=== PATIENT | female | born 1945 | race African-American/Black ===

== ENCOUNTER 2017-11-27 07:15 | Inpatient (IN) ==
[2017-11-27] MEDS ORDERED: DEXTROSE 50% 25 GM/50 ML VIAL IV PRN (13:42)
[2017-11-27] MEDS ORDERED: GLUCAGON 1 MG VIAL IM PRN (13:42)
[2017-11-27] MEDS ORDERED: MORPHINE 4 MG/1 ML VIAL IV PRN (13:46)
[2017-11-27] MEDS ORDERED: ZOLPIDEM 5 MG TABLET PO PRN (13:47)
[2017-11-27] MEDS ORDERED: NITROGLYCERIN DRIP 50 MG/250 ML BOTTLE IV PRN (13:49)
[2017-11-27] MEDS: SODIUM CHLORIDE 0.9% 1,000 ML IV SCH (14:23)
[2017-11-27] MEDS: CARVEDILOL 25 MG TABLET PO SCH (16:45)
[2017-11-27] MEDS: oxyCODONE/ACETAMINOPHEN 5-325 MG TABLET PO PRN ×2 (16:45→21:10)
[2017-11-27] MEDS: ENOXAPARIN 40 MG/0.4 ML SYRINGE SUBCUT SCH (21:10)
[2017-11-27] MEDS: NAPROXEN 250 MG TABLET PO SCH (21:10)
[2017-11-27] MEDS: ATORVASTATIN 80 MG TABLET PO SCH (21:10)
[2017-11-28] MEDS ORDERED: ONDANSETRON 4 MG/2 ML VIAL ONE (02:51)
[2017-11-28] MEDS: ONDANSETRON 4 MG/2 ML VIAL IV PRN ×2 (02:56→18:00)
[2017-11-28 03:52] LABS: Basophils % 0.3 % (0.0-0.8); Eosinophils # 0.2 10*3/uL (0.0-0.87); Eosinophils % 2.9 % (0.00-10.9); Hematocrit 37.9 VOL% (35.7-47.0); Hemoglobin 12.1 GM/DL (12.0-16.0); Immature Granulocytes % 0.2 %; Immature Granulocytes Absolute 0.01 #; Lymphocytes # 2.8 10*3/uL (1.4-4.0); Lymphocytes % 46.3 % (21.3-54.2); Mean Corpuscular HGB Conc 31.9 GM/DL (32-36); Mean Corpuscular Hemoglobin 28 PG (27-34); Mean Corpuscular Volume 87.9 FL (87-102); Mean Platelet Volume 12.1 FL (9.6-12.0); Monocytes # 0.5 10*3/uL (0.11-0.8); Monocytes % 7.3 % (1.7-12.7); Neutrophils # 2.6 10*3/uL (1.4-7.4); Platelet Count 196 T/CUMM (130-400); Red Blood Count 4.31 MC/CUMM (3.8-5.5); Red Cell Distribution Width 14.7 % (9.3-17.3); White Blood Count 6.1 T/CUMM (4-12)
[2017-11-28 04:15] LABS: Albumin 3.2 G/DL (3.4-5.0); Bilirubin,Total 1.6 MG/DL (0.2-1.0); Calcium 9.1 MG/DL (8.5-10.1); Osmolality,Calculated 279.5 MOS/KG (273-304); Total Protein 6.8 G/DL (6.4-8.3)
[2017-11-28 05:05] LABS: ABG Base Excess 1.6 MMOL/L (-2.5-2.5); ABG HCO3 25.9 MMOL/L (20-26); ABG Oxygen Saturation 97.9 % (95-100); ABG PCO2 46.6 MM HG (35-48); ABG PH 7.377 (7.35-7.45); ABG TCO2 24.2 MMOL/L (23-27); Allen Test Positive
[2017-11-28] MEDS: LOSARTAN 50 MG TABLET PO SCH (09:16)
[2017-11-28] MEDS: CARVEDILOL 25 MG TABLET PO SCH ×2 (09:17→16:39)
[2017-11-28] MEDS: ASPIRIN EC 81 MG TABLET PO SCH (09:17)
[2017-11-28] MEDS: NAPROXEN 250 MG TABLET PO SCH ×2 (09:17→21:05)
[2017-11-28] MEDS: SODIUM CHLORIDE 0.9% 1,000 ML IV SCH (15:28)
[2017-11-28] MEDS ORDERED: LACTULOSE 20 GM/30 ML UDCUP PO PRN (17:38)
[2017-11-28] MEDS: ENOXAPARIN 40 MG/0.4 ML SYRINGE SUBCUT SCH (21:04)
[2017-11-28] MEDS: ATORVASTATIN 80 MG TABLET PO SCH (21:05)
[2017-11-28] MEDS: oxyCODONE/ACETAMINOPHEN 5-325 MG TABLET PO PRN (21:05)
[2017-11-29] MEDS: ASPIRIN EC 81 MG TABLET PO SCH (08:41)
[2017-11-29] MEDS: LOSARTAN 50 MG TABLET PO SCH (08:41)
[2017-11-29] MEDS: CARVEDILOL 25 MG TABLET PO SCH ×2 (08:41→17:24)
[2017-11-29] MEDS: NAPROXEN 250 MG TABLET PO SCH ×2 (08:43→21:12)
[2017-11-29] MEDS: CHLORHEXIDINE 4% SOLN 118 ML BOTTLE TOP SCH ×2 (15:54→21:13)
[2017-11-29] MEDS: SODIUM CHLORIDE 0.9% 1,000 ML IV SCH (16:10)
[2017-11-29] MEDS ORDERED: CLORAZEPATE 3.75 MG TABLET PO PRN (17:44)
[2017-11-29] MEDS ORDERED: MORPHINE 4 MG/1 ML VIAL IV PRN (19:03)
[2017-11-29] MEDS: ATORVASTATIN 80 MG TABLET PO SCH (21:12)
[2017-11-29] MEDS: CHLORHEXIDINE 0.12% ORAL RINSE 60 ML BOTTLE SWISH/SPIT SCH (21:14)
[2017-11-30] MEDS ORDERED: PAPAVERINE 60 MG/2 ML VIAL ONE (04:47)
[2017-11-30] MEDS ORDERED: VANCOMYCIN 1,000 MG VIAL ONE ×2 (04:47→08:58)
[2017-11-30] MEDS ORDERED: SUFentanil 250 MCG/5 ML AMP ONE (05:35)
[2017-11-30] MEDS ORDERED: MIDAZOLAM 10 MG/2 ML VIAL ONE (05:35)
[2017-11-30] MEDS ORDERED: DIAZEPAM 5 MG TABLET PO ONE (06:00)
[2017-11-30] MEDS ORDERED: CEFUROXIME INJ 1,500 MG in SYRINGE 1 EACH IV ONE (06:30)
[2017-11-30 08:00] LABS: ABG Base Excess 1.7 MMOL/L (-2.5-2.5); ABG HCO3 25.9 MMOL/L (20-26); ABG Oxygen Saturation 99.3 % (95-100); ABG PCO2 40.6 MM HG (35-48); ABG PH 7.419 (7.35-7.45); ABG TCO2 23.4 MMOL/L (23-27); Glucose Heart Surgery 100 MG/DL (74-106); Hematocrit Heart Surgery 34.7 PERCENT (37-47); Hemoglobin Heart Surgery 11.3 G/DL (12.0-16.0); Ionized Calcium Arterial 1.21 MMOL/L (1.21-1.46); PCO2 Patient Temp Arterial 40.6 MMHG; PH Patient Temp Arterial 7.419; Patient Temperature 37 CELCIUS; Potassium Heart/CVR 3.8 MMOL/L (3.5-5.1); Sodium Heart/CVR 140 MMOL/L (135-145)
[2017-11-30 08:05] LABS: Apearance,Urine CLEAR (Clear); Bilirubin,Urine Negative (Negative); Blood, Urine Negative (Negative); Glucose,Urine (UA) Negative (Negative); Ketones,Urine Negative (Negative); Nitrite,Urine Negative (Negative); Protein,Urine Negative; RBC,Urine 1 /HPF (0-4); Squamous Epithelial Cell,Urine Occasional /HPF (0-10); Urine Color Yellow (Yellow); Urine Specific Gravity 1.006 (1.001-1.035); Urine Urobilinogen < 2.0 EU/DL (0.2-1.0); WBC,Urine <1 /HPF (0-6)
[2017-11-30] MEDS ORDERED: PHENYLEPHRINE DRIP 40 MG/250 ML PREMIX IV ONE (08:42)
[2017-11-30] MEDS ORDERED: POTASSIUM CHLORIDE RIDER 100 ML IV ONE (08:42)
[2017-11-30] MEDS ORDERED: NITROPRUSSIDE 50 MG/2 ML VIAL ONE (08:42)
[2017-11-30] MEDS ORDERED: CALCIUM CHLORIDE 1,000 MG/10 ML SYRINGE IV ONE (08:42)
[2017-11-30] MEDS ORDERED: SODIUM BICARBONATE 50 MEQ/50 ML SYRINGE IV ONE ×2 (08:43→10:33)
[2017-11-30] MEDS ORDERED: ALBUMIN 5% 12.5 GM/250 ML VIAL IV ONE (08:43)
[2017-11-30] MEDS: NAPROXEN 250 MG TABLET PO SCH (09:14)
[2017-11-30] MEDS: ASPIRIN EC 81 MG TABLET PO SCH (09:14)
[2017-11-30] MEDS: CHLORHEXIDINE 4% SOLN 118 ML BOTTLE TOP SCH (09:14)
[2017-11-30] MEDS: CARVEDILOL 25 MG TABLET PO SCH (09:14)
[2017-11-30] MEDS: LOSARTAN 50 MG TABLET PO SCH (09:14)
[2017-11-30] MEDS: CHLORHEXIDINE 0.12% ORAL RINSE 60 ML BOTTLE SWISH/SPIT SCH ×2 (09:15→21:58)
[2017-11-30 09:17] LABS: Hematocrit Heart Surgery 21.2 PERCENT (37-47); Hemoglobin Heart Surgery 6.8 G/DL (12.0-16.0); PCO2 Patient Temp Venous 26.8 MM HG; PH Patient Temp Venous 7.572; PO2 Patient Temp Venous 39.5 MM HG; Potassium Heart/CVR 5.8 MMOL/L (3.5-5.1); VBG Base Excess 2.9 MEQ/L (0-4); VBG HCO3 26.9 MEQ/L (24-28); VBG PH 7.526; VBG PO2 48.4 MMHG (17-40)
[2017-11-30 09:50] LABS: Hematocrit Heart Surgery 23.3 PERCENT (37-47); Hemoglobin Heart Surgery 7.5 G/DL (12.0-16.0); PCO2 Patient Temp Venous 28.6 MM HG; PH Patient Temp Venous 7.564; PO2 Patient Temp Venous 46.3 MM HG; Potassium Heart/CVR 5.2 MMOL/L (3.5-5.1); VBG Base Excess 3.9 MEQ/L (0-4); VBG HCO3 27.8 MEQ/L (24-28); VBG Oxygen Saturation 91.6 %; VBG PCO2 31.5 MMHG (41-51); VBG PH 7.533
[2017-11-30] MEDS ORDERED: EPINEPHrine 1 MG/10 ML SYRINGE ONE (10:16)
[2017-11-30] MEDS ORDERED: ALBUMIN 25% 25 GM/100 ML VIAL IV ONE (10:33)
[2017-11-30] MEDS ORDERED: PROTAMINE SULFATE 250 MG/25 ML VIAL IV ONE (10:33)
[2017-11-30] MEDS ORDERED: DEXTROSE 5% KCL 20 MEQ 20 MEQ/1,000 ML BAG IV ONE (10:33)
[2017-11-30] MEDS ORDERED: methylPREDNISolone SOD SUC 1,000 MG/8 ML VIAL ONE (10:34)
[2017-11-30] MEDS ORDERED: MANNITOL 12.5 GM/50 ML VIAL IV ONE (10:34)
[2017-11-30] MEDS ORDERED: HEPARIN 10,000 UNIT/10 ML VIAL ONE (10:34)
[2017-11-30] MEDS ORDERED: FUROSEMIDE 20 MG/2 ML VIAL ONE (10:34)
[2017-11-30] MEDS ORDERED: MAGNESIUM SULFATE 10 GM/20 ML VIAL IV ONE (10:34)
[2017-11-30 10:36] LABS: ABG Base Excess 1.4 MMOL/L (-2.5-2.5); ABG HCO3 25.7 MMOL/L (20-26); ABG Oxygen Saturation 99.3 % (95-100); ABG PH 7.452 (7.35-7.45); ABG TCO2 22.8 MMOL/L (23-27); Glucose Heart Surgery 252 MG/DL (74-106); Hematocrit Heart Surgery 30.8 PERCENT (37-47); Hemoglobin Heart Surgery 9.9 G/DL (12.0-16.0); Ionized Calcium Arterial 1.34 MMOL/L (1.21-1.46); PH Patient Temp Arterial 7.452; Patient Temperature 37 CELCIUS; Potassium Heart/CVR 4.4 MMOL/L (3.5-5.1); Sodium Heart/CVR 134 MMOL/L (135-145)
[2017-11-30] MEDS: SODIUM CHLORIDE 0.45% 1,000 ML IV SCH ×2 (11:15)
[2017-11-30] MEDS ORDERED: DEXTROSE 50% 25 GM/50 ML VIAL IV PRN ×2 (11:28)
[2017-11-30] MEDS ORDERED: ACETAMINOPHEN 650 MG SUPP RECTAL PRN (11:28)
[2017-11-30] MEDS ORDERED: MAGNESIUM SULF RIDER 2 GM in PREMIX 1 EACH IV PRN (11:28)
[2017-11-30] MEDS ORDERED: ONDANSETRON 4 MG/2 ML VIAL IV PRN (11:28)
[2017-11-30] MEDS ORDERED: MAGNESIUM SULF RIDER 4 GM in PREMIX 1 EACH IV PRN (11:28)
[2017-11-30] MEDS ORDERED: VECURONIUM 10 MG VIAL IV PRN ×2 (11:28)
[2017-11-30] MEDS ORDERED: LACTATED RINGERS 250 ML IV PRN (11:28)
[2017-11-30] MEDS ORDERED: CALCIUM CHLORIDE 1,000 MG/10 ML SYRINGE IV PRN (11:28)
[2017-11-30] MEDS ORDERED: MORPHINE 10 MG/1 ML VIAL IV PRN (11:28)
[2017-11-30] MEDS ORDERED: PHENYLEPHRINE DRIP 40 MG/250 ML PREMIX IV PRN (11:28)
[2017-11-30] MEDS ORDERED: MIDAZOLAM 10 MG/2 ML VIAL IV PRN (11:28)
[2017-11-30] MEDS ORDERED: INSULIN REGULAR 100 UNIT/ML IV PRN (11:28)
[2017-11-30] MEDS ORDERED: NITROPRUSSIDE 100 MG in DEXTROSE 5% 250 ML IV PRN (11:28)
[2017-11-30] MEDS ORDERED: INSULIN REGULAR 100 UNIT/ML IV ONE (11:28)
[2017-11-30] MEDS ORDERED: INSULIN REGULAR DRIP 100 ML IV SCH (11:30)
[2017-11-30] MEDS ORDERED: PROTAMINE SULFATE 50 MG/5 ML VIAL IV ONE (11:35)
[2017-11-30 11:39] LABS: ABG Base Excess 2.5 MMOL/L (-2.5-2.5); ABG Oxygen Saturation 93.6 % (95-100); ABG PCO2 31.8 MM HG (35-48); ABG PH 7.514 (7.35-7.45); ABG PO2 67.8 MM HG (80-95); Basophils % 0.6 % (0.0-0.8); Eosinophils # 0.1 10*3/uL (0.0-0.87); Eosinophils % 1.2 % (0.00-10.9); Glucose Heart Surgery 205 MG/DL (74-106); Hematocrit 33.6 VOL% (35.7-47.0); Hemoglobin 11.2 GM/DL (12.0-16.0); Hemoglobin Heart Surgery 11.9 G/DL (12.0-16.0); Immature Granulocytes % 0.6 %; Immature Granulocytes Absolute 0.04 #; Lymphocytes # 1.2 10*3/uL (1.4-4.0); Lymphocytes % 17.6 % (21.3-54.2); Mean Corpuscular HGB Conc 33.3 GM/DL (32-36); Mean Corpuscular Hemoglobin 29 PG (27-34); Mean Corpuscular Volume 88.2 FL (87-102); Mean Platelet Volume 10.7 FL (9.6-12.0); Monocytes # 0.2 10*3/uL (0.11-0.8); Monocytes % 2.8 % (1.7-12.7); Neutrophils # 5.2 10*3/uL (1.4-7.4); Neutrophils % 77.2 % (38.7-73.9); Platelet Count 168 T/CUMM (130-400); Red Blood Count 3.81 MC/CUMM (3.8-5.5); Red Cell Distribution Width 14.6 % (9.3-17.3); White Blood Count 6.8 T/CUMM (4-12)
[2017-11-30] MEDS ORDERED: PROPOFOL 200 MG/20 ML VIAL IV ONE (11:40)
[2017-11-30] MEDS ORDERED: SEVOFLURANE 1 UNIT/15 MINUTE INH ONE (11:41)
[2017-11-30] MEDS ORDERED: HEPARIN/NACL 0.9% 2 UNITS/ML 500 ML IV ONE (11:41)
[2017-11-30] MEDS ORDERED: ePHEDrine 50 MG/ML AMP ONE (11:41)
[2017-11-30] MEDS ORDERED: PHENYLEPHRINE DRIP 20 MG/250 ML PREMIX IV ONE (11:41)
[2017-11-30] MEDS ORDERED: CALCIUM CHLORIDE 1,000 MG/10 ML VIAL IV ONE (11:41)
[2017-11-30] MEDS ORDERED: SODIUM CHLORIDE 0.9% 2,000 ML IV ONE (11:42)
[2017-11-30] MEDS ORDERED: GLYCOPYRROLATE 0.4 MG/2 ML VIAL ONE (11:42)
[2017-11-30] MEDS ORDERED: NITROGLYCERIN DRIP 50 MG/250 ML BOTTLE IV ONE (11:42)
[2017-11-30] MEDS ORDERED: LACTATED RINGERS 2,000 ML IV ONE (11:42)
[2017-11-30] MEDS ORDERED: PHENYLEPHRINE 1 MG/10 ML SYRINGE IV ONE (11:42)
[2017-11-30] MEDS ORDERED: AMINOCAPROIC ACID 5,000 MG/20 ML VIAL IV ONE (11:42)
[2017-11-30] MEDS ORDERED: SODIUM CHLORIDE 0.9% 200 ML IV ONE (11:42)
[2017-11-30] MEDS ORDERED: ETOMIDATE 40 MG/20 ML VIAL IV ONE (11:42)
[2017-11-30] MEDS ORDERED: SODIUM CHLORIDE 0.9% 250 ML IV ONE (11:42)
[2017-11-30] MEDS: KETOROLAC 30 MG/1 ML VIAL IV SCH ×2 (11:46→17:00)
[2017-11-30 11:50] LABS: INR 1.1; PT Patient Result 11.8 SECS; Partial Thromboplastin Time 33.5 SECS (0-40)
[2017-11-30] MEDS: POTASSIUM CHLORIDE RIDER 20 MEQ in PREMIX 1 EACH IV PRN ×2 (12:05→18:29)
[2017-11-30 12:09] LABS: Osmolality,Calculated 284.4 MOS/KG (273-304); Potassium 4.2 MMOL/L (3.5-5.1); Total Protein 5.6 G/DL (6.4-8.3)
[2017-11-30] MEDS: LACTATED RINGERS 1,000 ML IV PRN ×3 (12:15→16:45)
[2017-11-30 12:16] LABS: ABG Base Excess 1.1 MMOL/L (-2.5-2.5); ABG HCO3 23.7 MMOL/L (20-26); ABG PCO2 31.2 MM HG (35-48); ABG PH 7.499 (7.35-7.45); ABG PO2 98.1 MM HG (80-95); ABG TCO2 24.7 MMOL/L (23-27); Glucose Heart Surgery 183 MG/DL (74-106); Hemoglobin Heart Surgery 11.5 G/DL (12.0-16.0); Potassium Heart/CVR 3.6 MMOL/L (3.5-5.1)
[2017-11-30] MEDS: ALBUMIN 5% 12.5 GM in PREMIX 1 EACH IV PRN ×3 (12:23→17:53)
[2017-11-30 12:29] LABS: CKMB % 7.6 %
[2017-11-30 12:30] LABS: Troponin I 5.65 NG/ML (0.00-0.045)
[2017-11-30] MEDS: POTASSIUM CHLORIDE RIDER 10 MEQ in PREMIX 1 EACH IV PRN ×3 (12:45→16:20)
[2017-11-30 14:00] LABS: ABG Base Excess 1.6 MMOL/L (-2.5-2.5); ABG HCO3 24.3 MMOL/L (20-26); ABG Oxygen Saturation 97.1 % (95-100); ABG PCO2 31.6 MM HG (35-48); ABG PH 7.503 (7.35-7.45); ABG PO2 98.5 MM HG (80-95); ABG TCO2 25.2 MMOL/L (23-27); Glucose Heart Surgery 140 MG/DL (74-106); Hemoglobin Heart Surgery 11.2 G/DL (12.0-16.0); Potassium Heart/CVR 4.5 MMOL/L (3.5-5.1)
[2017-11-30 16:09] LABS: ABG Base Excess 2.2 MMOL/L (-2.5-2.5); ABG HCO3 24.8 MMOL/L (20-26); ABG Oxygen Saturation 96.1 % (95-100); ABG PCO2 31.4 MM HG (35-48); ABG PH 7.515 (7.35-7.45); ABG PO2 86.9 MM HG (80-95); ABG TCO2 25.7 MMOL/L (23-27); Glucose Heart Surgery 125 MG/DL (74-106); Hemoglobin Heart Surgery 10.6 G/DL (12.0-16.0); Potassium Heart/CVR 4.5 MMOL/L (3.5-5.1)
[2017-11-30] MEDS: MIDAZOLAM 2 MG/2 ML VIAL IV PRN ×3 (17:12→21:46)
[2017-11-30 18:23] LABS: ABG Base Excess 1.5 MMOL/L (-2.5-2.5); ABG HCO3 25.7 MMOL/L (20-26); ABG Oxygen Saturation 97.2 % (95-100); ABG PCO2 31.8 MM HG (35-48); ABG PH 7.491 (7.35-7.45); ABG PO2 86.5 MM HG (80-95); ABG TCO2 22.1 MMOL/L (23-27); Glucose Heart Surgery 134 MG/DL (74-106); Hematocrit Heart Surgery 30.4 PERCENT (37-47); Hemoglobin Heart Surgery 9.8 G/DL (12.0-16.0); Potassium Heart/CVR 4.4 MMOL/L (3.5-5.1)
[2017-11-30] MEDS: CEFUROXIME INJ 1,500 MG in SYRINGE 1 EACH IV SCH (20:20)
[2017-11-30 20:53] LABS: Troponin I 4.75 NG/ML (0.00-0.045)
[2017-11-30] MEDS: PROPOFOL 1,000 MG/100 ML BOTTLE IV SCH (21:58)
[2017-12-01] MEDS: KETOROLAC 30 MG/1 ML VIAL IV SCH ×4 (00:07→17:04)
[2017-12-01] MEDS ORDERED: FUROSEMIDE 40 MG/4 ML VIAL IV ONE ×2 (01:00→11:24)
[2017-12-01 03:37] LABS: ABG HCO3 26.1 MMOL/L (20-26); ABG Oxygen Saturation 95.1 % (95-100); ABG PCO2 31.9 MM HG (35-48); ABG PH 7.498 (7.35-7.45); ABG PO2 69.9 MM HG (80-95); ABG TCO2 22.3 MMOL/L (23-27); Glucose Heart Surgery 122 MG/DL (74-106); Hematocrit Heart Surgery 31.6 PERCENT (37-47); Hemoglobin Heart Surgery 10.2 G/DL (12.0-16.0); Potassium Heart/CVR 4.2 MMOL/L (3.5-5.1)
[2017-12-01 03:55] LABS: Basophils % 0.1 % (0.0-0.8); Hematocrit 29.7 VOL% (35.7-47.0); Hemoglobin 9.8 GM/DL (12.0-16.0); Immature Granulocytes % 0.6 %; Immature Granulocytes Absolute 0.09 #; Lymphocytes # 1.2 10*3/uL (1.4-4.0); Lymphocytes % 8.3 % (21.3-54.2); Mean Corpuscular Hemoglobin 29 PG (27-34); Mean Corpuscular Volume 88.1 FL (87-102); Mean Platelet Volume 11.7 FL (9.6-12.0); Monocytes # 0.5 10*3/uL (0.11-0.8); Monocytes % 3.1 % (1.7-12.7); Neutrophils # 13.2 10*3/uL (1.4-7.4); Neutrophils % 87.9 % (38.7-73.9); Platelet Count 152 T/CUMM (130-400); Red Blood Count 3.37 MC/CUMM (3.8-5.5); Red Cell Distribution Width 14.7 % (9.3-17.3)
[2017-12-01 04:07] LABS: Albumin 3.6 G/DL (3.4-5.0); Bilirubin,Direct 0.23 MG/DL (0.0-0.20); Bilirubin,Total 1.1 MG/DL (0.2-1.0); Calcium 9.3 MG/DL (8.5-10.1); Osmolality,Calculated 280.3 MOS/KG (273-304); Potassium 4.2 MMOL/L (3.5-5.1); Total Protein 6.1 G/DL (6.4-8.3)
[2017-12-01 04:58] LABS: CKMB % 5.4 %
[2017-12-01 05:01] LABS: Troponin I 4.13 NG/ML (0.00-0.045)
[2017-12-01] MEDS: POTASSIUM CHLORIDE RIDER 20 MEQ in PREMIX 1 EACH IV PRN (05:22)
[2017-12-01] MEDS: MORPHINE 4 MG/1 ML VIAL IV PRN ×6 (05:23→23:35)
[2017-12-01] MEDS: CEFUROXIME INJ 1,500 MG in SYRINGE 1 EACH IV SCH ×2 (06:35→18:39)
[2017-12-01] MEDS ORDERED: LIDOCAINE 1% 20 ML VIAL MISC INJ ONE (07:01)
[2017-12-01] MEDS ORDERED: MIDAZOLAM 2 MG/2 ML VIAL IV ONE (07:01)
[2017-12-01] MEDS ORDERED: LIDOCAINE 2% 20 ML VIAL RESP TX ONE (07:01)
[2017-12-01] MEDS: PROPOFOL 1,000 MG/100 ML BOTTLE IV SCH ×2 (07:38→22:09)
[2017-12-01] MEDS: CHLORHEXIDINE 0.12% ORAL RINSE 60 ML BOTTLE SWISH/SPIT SCH ×2 (08:16→20:19)
[2017-12-01] MEDS: MIDAZOLAM 2 MG/2 ML VIAL IV PRN (08:25)
[2017-12-01] MEDS: methylPREDNISolone SOD SUC 40 MG/1 ML VIAL IV SCH ×2 (08:50→17:00)
[2017-12-01] MEDS: cefTRIAXone 1,000 MG in SYRINGE 1 EACH IV SCH (08:54)
[2017-12-01 09:24] LABS: ABG Base Excess 0.1 MMOL/L (-2.5-2.5); ABG HCO3 24.5 MMOL/L (20-26); ABG Oxygen Saturation 97.8 % (95-100); ABG PCO2 35.2 MM HG (35-48); ABG TCO2 21.7 MMOL/L (23-27); Glucose Heart Surgery 117 MG/DL (74-106); Hematocrit Heart Surgery 30.8 PERCENT (37-47); Hemoglobin Heart Surgery 9.9 G/DL (12.0-16.0); Potassium Heart/CVR 4.6 MMOL/L (3.5-5.1)
[2017-12-01] MEDS ORDERED: NITROGLYCERIN DRIP 50 MG/250 ML BOTTLE IV PRN (11:24)
[2017-12-01] MEDS: ALBUTEROL/IPRATROPIUM 3 ML NEB RESP TX SCH ×2 (11:50→19:12)
[2017-12-01] MEDS: SODIUM CHLORIDE 0.45% 1,000 ML IV SCH ×2 (12:23)
[2017-12-01] MEDS: INSULIN REGULAR 100 UNIT/ML SUBCUT SCH ×3 (12:24→20:18)
[2017-12-01 13:03] LABS: ABG Base Excess 0.2 MMOL/L (-2.5-2.5); ABG HCO3 24.6 MMOL/L (20-26); ABG Oxygen Saturation 98.9 % (95-100); ABG PCO2 31.6 MM HG (35-48); ABG PH 7.472 (7.35-7.45); ABG TCO2 20.8 MMOL/L (23-27); Glucose Heart Surgery 121 MG/DL (74-106); Hematocrit Heart Surgery 32.9 PERCENT (37-47); Hemoglobin Heart Surgery 10.7 G/DL (12.0-16.0); Potassium Heart/CVR 4.5 MMOL/L (3.5-5.1)
[2017-12-01 13:46] LABS: Troponin I 3.44 NG/ML (0.00-0.045)
[2017-12-01 16:32] LABS: ABG Base Excess -0.6 MMOL/L (-2.5-2.5); ABG HCO3 23.9 MMOL/L (20-26); ABG Oxygen Saturation 98.8 % (95-100); ABG PCO2 38.3 MM HG (35-48); ABG PH 7.404 (7.35-7.45); ABG TCO2 21.6 MMOL/L (23-27); Glucose Heart Surgery 135 MG/DL (74-106); Hematocrit Heart Surgery 32.6 PERCENT (37-47); Hemoglobin Heart Surgery 10.5 G/DL (12.0-16.0); Potassium Heart/CVR 4.5 MMOL/L (3.5-5.1)
[2017-12-01 17:35] LABS: ABG Base Excess -0.6 MMOL/L (-2.5-2.5); ABG HCO3 23.9 MMOL/L (20-26); ABG Oxygen Saturation 99.4 % (95-100); ABG PCO2 36.9 MM HG (35-48); ABG PH 7.414 (7.35-7.45); ABG TCO2 21.3 MMOL/L (23-27)
[2017-12-01 18:34] LABS: ABG Base Excess -0.6 MMOL/L (-2.5-2.5); ABG HCO3 23.9 MMOL/L (20-26); ABG Oxygen Saturation 98.3 % (95-100); ABG PCO2 44.5 MM HG (35-48); ABG PH 7.358 (7.35-7.45); ABG TCO2 22.7 MMOL/L (23-27); Glucose Heart Surgery 147 MG/DL (74-106); Hematocrit Heart Surgery 32.5 PERCENT (37-47); Hemoglobin Heart Surgery 10.5 G/DL (12.0-16.0); Potassium Heart/CVR 4.7 MMOL/L (3.5-5.1)
[2017-12-02] MEDS: INSULIN REGULAR 100 UNIT/ML SUBCUT SCH ×3 (00:27→07:58)
[2017-12-02] MEDS: methylPREDNISolone SOD SUC 40 MG/1 ML VIAL IV SCH ×2 (00:39→12:57)
[2017-12-02] MEDS: ALBUTEROL/IPRATROPIUM 3 ML NEB RESP TX SCH ×4 (00:55→19:31)
[2017-12-02 04:24] LABS: ABG Base Excess 0.7 MMOL/L (-2.5-2.5); ABG HCO3 25.1 MMOL/L (20-26); ABG Oxygen Saturation 97.7 % (95-100); ABG PCO2 43.7 MM HG (35-48); ABG PH 7.382 (7.35-7.45); ABG TCO2 23.7 MMOL/L (23-27)
[2017-12-02 04:33] LABS: Basophils % 0.1 % (0.0-0.8); Hematocrit 31.3 VOL% (35.7-47.0); Hemoglobin 10.1 GM/DL (12.0-16.0); Immature Granulocytes % 1.1 %; Immature Granulocytes Absolute 0.22 #; Lymphocytes # 1.1 10*3/uL (1.4-4.0); Lymphocytes % 5.4 % (21.3-54.2); Mean Corpuscular HGB Conc 32.3 GM/DL (32-36); Mean Corpuscular Hemoglobin 29 PG (27-34); Mean Corpuscular Volume 90.7 FL (87-102); Mean Platelet Volume 11.8 FL (9.6-12.0); Monocytes # 0.9 10*3/uL (0.11-0.8); Monocytes % 4.5 % (1.7-12.7); Neutrophils # 17.9 10*3/uL (1.4-7.4); Neutrophils % 88.9 % (38.7-73.9); Platelet Count 160 T/CUMM (130-400); Red Blood Count 3.45 MC/CUMM (3.8-5.5); Red Cell Distribution Width 15.2 % (9.3-17.3); White Blood Count 20.2 T/CUMM (4-12)
[2017-12-02 04:55] LABS: Albumin 3.4 G/DL (3.4-5.0); Bilirubin,Direct 0.14 MG/DL (0.0-0.20); Bilirubin,Total 0.8 MG/DL (0.2-1.0); Calcium 8.7 MG/DL (8.5-10.1); Osmolality,Calculated 282.5 MOS/KG (273-304); Potassium 4.7 MMOL/L (3.5-5.1)
[2017-12-02 05:51] LABS: Band Neutrophils 3 % (0-10); Lymphocytes 5 % (20-55); Segmented Neutrophils 90 % (50-85); Total Cells Counted 100
[2017-12-02 05:53] LABS: Anisocytosis 1+; Platelet Estimate Adequate
[2017-12-02] MEDS: CHLORHEXIDINE 0.12% ORAL RINSE 60 ML BOTTLE SWISH/SPIT SCH ×2 (08:38→20:45)
[2017-12-02] MEDS: cefTRIAXone 1,000 MG in SYRINGE 1 EACH IV SCH (09:00)
[2017-12-02] MEDS ORDERED: CLORAZEPATE 3.75 MG TABLET PO PRN (09:02)
[2017-12-02] MEDS ORDERED: ALUMINUM/MAGNES/SIMETH MAX STR 30 ML UDCUP PO PRN (09:28)
[2017-12-02] MEDS ORDERED: POTASSIUM CHLORIDE 20 MEQ TABLET PO PRN (09:28)
[2017-12-02] MEDS ORDERED: MAGNESIUM SULF RIDER 2 GM in PREMIX 1 EACH IV PRN (09:28)
[2017-12-02] MEDS ORDERED: MAGNESIUM SULF RIDER 4 GM in PREMIX 1 EACH IV PRN (09:28)
[2017-12-02] MEDS ORDERED: DEXTROSE 50% 25 GM/50 ML VIAL IV PRN ×2 (09:28)
[2017-12-02] MEDS ORDERED: ACETAMINOPHEN 325 MG TABLET PO PRN (09:28)
[2017-12-02] MEDS ORDERED: GLUCAGON 1 MG VIAL IM PRN ×2 (09:28)
[2017-12-02] MEDS ORDERED: SODIUM CHLOR 0.45% KCL 20 MEQ 20 MEQ/1,000 ML BAG IV SCH (09:30)
[2017-12-02] MEDS: KETOROLAC 30 MG/1 ML VIAL IV SCH ×3 (09:56→20:38)
[2017-12-02] MEDS: oxyCODONE/ACETAMINOPHEN 5-325 MG TABLET PO PRN ×2 (09:56→13:36)
[2017-12-02] MEDS ORDERED: ALBUTEROL/IPRATROPIUM 3 ML NEB RESP TX SCH (13:00)
[2017-12-02] MEDS: CARVEDILOL 25 MG TABLET PO SCH (17:21)
[2017-12-02] MEDS: ATORVASTATIN 80 MG TABLET PO SCH (20:38)
[2017-12-03] MEDS: methylPREDNISolone SOD SUC 40 MG/1 ML VIAL IV SCH (01:59)
[2017-12-03] MEDS: KETOROLAC 30 MG/1 ML VIAL IV SCH ×6 (01:59→20:44)
[2017-12-03] MEDS: ALBUTEROL/IPRATROPIUM 3 ML NEB RESP TX SCH ×4 (02:12→19:09)
[2017-12-03] MEDS ORDERED: FUROSEMIDE 40 MG/4 ML VIAL IV ONE (06:00)
[2017-12-03 06:46] LABS: Alanine Aminotransferase 24 U/L (13-56); Albumin 3.2 G/DL (3.4-5.0); Alkaline Phosphatase 57 U/L (45-117); Aspartate Amino Transferase 22 U/L (0-37); Bilirubin,Indirect 0.8 MG/DL (0.0-1.0); Blood Urea Nitrogen 25 MG/DL (7-18); Calcium 9.1 MG/DL (8.5-10.1); Glucose 153 MG/DL (74-106); Osmolality,Calculated 283.5 MOS/KG (273-304); Potassium 4.7 MMOL/L (3.5-5.1); Sodium 139 MMOL/L (136-145); Total Protein 6.3 G/DL (6.4-8.3)
[2017-12-03 08:15] LABS: Basophils % 0.1 % (0.0-0.8); Hematocrit 30.9 VOL% (35.7-47.0); Hemoglobin 9.8 GM/DL (12.0-16.0); Immature Granulocytes % 1.3 %; Immature Granulocytes Absolute 0.21 #; Lymphocytes # 1.2 10*3/uL (1.4-4.0); Lymphocytes % 7.2 % (21.3-54.2); Mean Corpuscular HGB Conc 31.7 GM/DL (32-36); Mean Corpuscular Hemoglobin 29 PG (27-34); Mean Corpuscular Volume 92.5 FL (87-102); Mean Platelet Volume 12.7 FL (9.6-12.0); Monocytes # 0.8 10*3/uL (0.11-0.8); Monocytes % 4.9 % (1.7-12.7); Neutrophils % 86.5 % (38.7-73.9); Platelet Count 147 T/CUMM (130-400); Red Blood Count 3.34 MC/CUMM (3.8-5.5); Red Cell Distribution Width 15.1 % (9.3-17.3); White Blood Count 16.2 T/CUMM (4-12)
[2017-12-03] MEDS: PANTOPRAZOLE 40 MG TABLET PO SCH (08:25)
[2017-12-03] MEDS: DOCUSATE SODIUM 100 MG CAPSULE PO SCH (08:25)
[2017-12-03] MEDS: CARVEDILOL 25 MG TABLET PO SCH ×2 (08:25→17:22)
[2017-12-03] MEDS: FERROUS SULFATE 325 MG TABLET PO SCH (08:25)
[2017-12-03] MEDS: ASPIRIN EC 81 MG TABLET PO SCH (08:25)
[2017-12-03] MEDS: LOSARTAN 50 MG TABLET PO SCH (08:25)
[2017-12-03] MEDS: cefTRIAXone 1,000 MG in SYRINGE 1 EACH IV SCH (08:28)
[2017-12-03] MEDS: CHLORHEXIDINE 0.12% ORAL RINSE 60 ML BOTTLE SWISH/SPIT SCH ×2 (08:33→20:43)
[2017-12-03] MEDS: ONDANSETRON 4 MG/2 ML VIAL IV PRN (09:10)
[2017-12-03] MEDS: oxyCODONE/ACETAMINOPHEN 5-325 MG TABLET PO PRN ×2 (09:25→17:22)
[2017-12-03] MEDS: ZALEPLON 5 MG CAPSULE PO PRN (20:43)
[2017-12-03] MEDS: ATORVASTATIN 80 MG TABLET PO SCH (20:43)
[2017-12-04] MEDS: ALBUTEROL/IPRATROPIUM 3 ML NEB RESP TX SCH ×4 (00:11→18:53)
[2017-12-04] MEDS: KETOROLAC 30 MG/1 ML VIAL IV SCH ×4 (03:36→21:36)
[2017-12-04 05:22] LABS: Basophils % 0.1 % (0.0-0.8); Hematocrit 29.6 VOL% (35.7-47.0); Hemoglobin 9.5 GM/DL (12.0-16.0); Immature Granulocytes % 0.9 %; Immature Granulocytes Absolute 0.14 #; Lymphocytes # 2.6 10*3/uL (1.4-4.0); Lymphocytes % 17.2 % (21.3-54.2); Mean Corpuscular HGB Conc 32.1 GM/DL (32-36); Mean Corpuscular Hemoglobin 29 PG (27-34); Mean Corpuscular Volume 91.4 FL (87-102); Mean Platelet Volume 12.5 FL (9.6-12.0); Monocytes # 1.3 10*3/uL (0.11-0.8); Monocytes % 8.3 % (1.7-12.7); Neutrophils # 11.1 10*3/uL (1.4-7.4); Neutrophils % 73.5 % (38.7-73.9); Platelet Count 161 T/CUMM (130-400); Red Blood Count 3.24 MC/CUMM (3.8-5.5); Red Cell Distribution Width 14.6 % (9.3-17.3); White Blood Count 15.1 T/CUMM (4-12)
[2017-12-04 05:46] LABS: Alanine Aminotransferase 26 U/L (13-56); Alkaline Phosphatase 49 U/L (45-117); Aspartate Amino Transferase 17 U/L (0-37); Bilirubin,Indirect 0.7 MG/DL (0.0-1.0); Blood Urea Nitrogen 26 MG/DL (7-18); Calcium 8.8 MG/DL (8.5-10.1); Glucose 108 MG/DL (74-106); Osmolality,Calculated 288.1 MOS/KG (273-304); Potassium 4.3 MMOL/L (3.5-5.1); Sodium 142 MMOL/L (136-145)
[2017-12-04] MEDS: oxyCODONE/ACETAMINOPHEN 5-325 MG TABLET PO PRN ×3 (07:55→21:36)
[2017-12-04] MEDS: CARVEDILOL 25 MG TABLET PO SCH ×2 (07:56→16:49)
[2017-12-04] MEDS: DOCUSATE SODIUM 100 MG CAPSULE PO SCH (08:42)
[2017-12-04] MEDS: CEFUROXIME 250 MG TABLET PO SCH ×2 (08:42→21:36)
[2017-12-04] MEDS: ASPIRIN EC 81 MG TABLET PO SCH (08:42)
[2017-12-04] MEDS: PANTOPRAZOLE 40 MG TABLET PO SCH (08:42)
[2017-12-04] MEDS: LOSARTAN 50 MG TABLET PO SCH (08:43)
[2017-12-04] MEDS: FERROUS SULFATE 325 MG TABLET PO SCH (08:43)
[2017-12-04] MEDS: CHLORHEXIDINE 0.12% ORAL RINSE 60 ML BOTTLE SWISH/SPIT SCH ×2 (08:43→21:36)
[2017-12-04] MEDS: ATORVASTATIN 80 MG TABLET PO SCH (21:36)
[2017-12-05] MEDS: ALBUTEROL/IPRATROPIUM 3 ML NEB RESP TX SCH ×4 (00:24→19:42)
[2017-12-05] MEDS: KETOROLAC 30 MG/1 ML VIAL IV SCH (04:13)
[2017-12-05] MEDS: LOSARTAN 50 MG TABLET PO SCH (09:07)
[2017-12-05] MEDS: ASPIRIN EC 81 MG TABLET PO SCH (09:07)
[2017-12-05] MEDS: CARVEDILOL 25 MG TABLET PO SCH ×2 (09:07→16:40)
[2017-12-05] MEDS: DOCUSATE SODIUM 100 MG CAPSULE PO SCH (09:07)
[2017-12-05] MEDS: PANTOPRAZOLE 40 MG TABLET PO SCH (09:07)
[2017-12-05] MEDS: FERROUS SULFATE 325 MG TABLET PO SCH (09:08)
[2017-12-05] MEDS: oxyCODONE/ACETAMINOPHEN 5-325 MG TABLET PO PRN ×3 (09:08→18:54)
[2017-12-05] MEDS: CEFUROXIME 250 MG TABLET PO SCH ×2 (10:41→20:51)
[2017-12-05] MEDS: CHLORHEXIDINE 0.12% ORAL RINSE 60 ML BOTTLE SWISH/SPIT SCH ×2 (10:41→20:51)
[2017-12-05] MEDS: ATORVASTATIN 80 MG TABLET PO SCH (20:51)
[2017-12-06] MEDS: ALBUTEROL/IPRATROPIUM 3 ML NEB RESP TX SCH ×2 (01:01→07:38)
[2017-12-06] MEDS: oxyCODONE/ACETAMINOPHEN 5-325 MG TABLET PO PRN ×3 (04:43→21:13)
[2017-12-06 06:13] LABS: Basophils % 0.2 % (0.0-0.8); Eosinophils # 0.2 10*3/uL (0.0-0.87); Hematocrit 33.1 VOL% (35.7-47.0); Hemoglobin 10.7 GM/DL (12.0-16.0); Immature Granulocytes % 0.6 %; Immature Granulocytes Absolute 0.06 #; Lymphocytes # 3.8 10*3/uL (1.4-4.0); Lymphocytes % 38.2 % (21.3-54.2); Mean Corpuscular HGB Conc 32.3 GM/DL (32-36); Mean Corpuscular Hemoglobin 29 PG (27-34); Mean Corpuscular Volume 90.2 FL (87-102); Mean Platelet Volume 11.7 FL (9.6-12.0); Monocytes # 0.7 10*3/uL (0.11-0.8); Monocytes % 7.3 % (1.7-12.7); NRBC # 0.02 10*3/uL; Neutrophils # 5.2 10*3/uL (1.4-7.4); Neutrophils % 51.7 % (38.7-73.9); Platelet Count 246 T/CUMM (130-400); Red Blood Count 3.67 MC/CUMM (3.8-5.5); Red Cell Distribution Width 14.6 % (9.3-17.3)
[2017-12-06 06:33] LABS: Alanine Aminotransferase 26 U/L (13-56); Albumin 2.9 G/DL (3.4-5.0); Alkaline Phosphatase 58 U/L (45-117); Aspartate Amino Transferase 13 U/L (0-37); Bilirubin,Indirect 0.5 MG/DL (0.0-1.0); Blood Urea Nitrogen 15 MG/DL (7-18); Calcium 8.7 MG/DL (8.5-10.1); Glucose 93 MG/DL (74-106); Osmolality,Calculated 283.1 MOS/KG (273-304); Potassium 4.3 MMOL/L (3.5-5.1); Sodium 142 MMOL/L (136-145); Total Protein 5.7 G/DL (6.4-8.3)
[2017-12-06 06:36] LABS: Troponin I 0.659 NG/ML (0.00-0.045)
[2017-12-06] MEDS: ASPIRIN EC 81 MG TABLET PO SCH (09:13)
[2017-12-06] MEDS: CARVEDILOL 25 MG TABLET PO SCH ×2 (09:13→16:24)
[2017-12-06] MEDS: PANTOPRAZOLE 40 MG TABLET PO SCH (09:13)
[2017-12-06] MEDS: DOCUSATE SODIUM 100 MG CAPSULE PO SCH (09:13)
[2017-12-06] MEDS: FERROUS SULFATE 325 MG TABLET PO SCH (09:13)
[2017-12-06] MEDS: LOSARTAN 50 MG TABLET PO SCH (09:15)
[2017-12-06] MEDS: CHLORHEXIDINE 0.12% ORAL RINSE 60 ML BOTTLE SWISH/SPIT SCH ×2 (11:32→21:14)
[2017-12-06] MEDS: ATORVASTATIN 80 MG TABLET PO SCH (21:13)
[2017-12-06] MEDS: ZALEPLON 5 MG CAPSULE PO PRN (21:13)
[2017-12-07 04:19] LABS: Basophils % 0.2 % (0.0-0.8); Eosinophils # 0.3 10*3/uL (0.0-0.87); Eosinophils % 2.7 % (0.00-10.9); Hematocrit 31.7 VOL% (35.7-47.0); Immature Granulocytes % 0.6 %; Immature Granulocytes Absolute 0.06 #; Lymphocytes # 3.9 10*3/uL (1.4-4.0); Lymphocytes % 41.2 % (21.3-54.2); Mean Corpuscular HGB Conc 31.5 GM/DL (32-36); Mean Corpuscular Hemoglobin 29 PG (27-34); Mean Corpuscular Volume 91.4 FL (87-102); Mean Platelet Volume 11.7 FL (9.6-12.0); Monocytes # 0.8 10*3/uL (0.11-0.8); Monocytes % 8.4 % (1.7-12.7); Neutrophils # 4.4 10*3/uL (1.4-7.4); Neutrophils % 46.9 % (38.7-73.9); Platelet Count 240 T/CUMM (130-400); Red Blood Count 3.47 MC/CUMM (3.8-5.5); Red Cell Distribution Width 14.8 % (9.3-17.3); White Blood Count 9.4 T/CUMM (4-12)
[2017-12-07 04:45] LABS: Alanine Aminotransferase 23 U/L (13-56); Albumin 2.8 G/DL (3.4-5.0); Alkaline Phosphatase 53 U/L (45-117); Aspartate Amino Transferase 10 U/L (0-37); Blood Urea Nitrogen 12 MG/DL (7-18); Calcium 8.9 MG/DL (8.5-10.1); Glucose 104 MG/DL (74-106); Osmolality,Calculated 280.3 MOS/KG (273-304); Potassium 4.1 MMOL/L (3.5-5.1); Sodium 141 MMOL/L (136-145); Total Protein 5.9 G/DL (6.4-8.3)
[2017-12-07 04:50] LABS: Troponin I 0.432 NG/ML (0.00-0.045)
[2017-12-07] MEDS: MAGNESIUM HYDROXIDE SUSP 30 ML UDCUP PO PRN ×2 (06:37→14:38)
[2017-12-07] MEDS: CHLORHEXIDINE 0.12% ORAL RINSE 60 ML BOTTLE SWISH/SPIT SCH ×2 (08:58→21:05)
[2017-12-07] MEDS: DOCUSATE SODIUM 100 MG CAPSULE PO SCH (08:59)
[2017-12-07] MEDS: FERROUS SULFATE 325 MG TABLET PO SCH (08:59)
[2017-12-07] MEDS: CARVEDILOL 25 MG TABLET PO SCH ×2 (08:59→16:19)
[2017-12-07] MEDS: ASPIRIN EC 81 MG TABLET PO SCH (08:59)
[2017-12-07] MEDS: PANTOPRAZOLE 40 MG TABLET PO SCH (08:59)
[2017-12-07] MEDS: LOSARTAN 50 MG TABLET PO SCH (08:59)
[2017-12-07] MEDS ORDERED: LACTULOSE 20 GM/30 ML UDCUP PO PRN (09:25)
[2017-12-07] MEDS: ONDANSETRON 4 MG/2 ML VIAL IV PRN (10:59)
[2017-12-07] MEDS: oxyCODONE/ACETAMINOPHEN 5-325 MG TABLET PO PRN ×2 (14:38→21:09)
[2017-12-07] MEDS ORDERED: BISACODYL 10 MG SUPP RECTAL PRN (14:40)
[2017-12-07] MEDS: ATORVASTATIN 80 MG TABLET PO SCH (21:07)
[2017-12-07] MEDS: ZALEPLON 5 MG CAPSULE PO PRN (21:09)
[2017-12-08] MEDS: oxyCODONE/ACETAMINOPHEN 5-325 MG TABLET PO PRN (11:21)
[2017-12-08] MEDS: PANTOPRAZOLE 40 MG TABLET PO SCH (11:22)
[2017-12-08] MEDS: CARVEDILOL 25 MG TABLET PO SCH (11:23)
[2017-12-08] MEDS: DOCUSATE SODIUM 100 MG CAPSULE PO SCH (11:23)
[2017-12-08] MEDS: FERROUS SULFATE 325 MG TABLET PO SCH (11:23)
[2017-12-08] MEDS: ASPIRIN EC 81 MG TABLET PO SCH (11:23)
[2017-12-08] MEDS: LOSARTAN 50 MG TABLET PO SCH (11:24)
[2017-12-08 12:01] VITALS: BP 110/52
== END 2017-12-08 15:26 | disposition home health service (06) | DRG 236 ==
LOC: N.TELES 11:47 → N.CVR 11-30 09:19 → N.TELES 12-02 11:05

== ENCOUNTER 2018-02-22 23:23 | Inpatient (IN) ==
[2018-02-22] MEDS ORDERED: ASPIRIN 325 MG TABLET PO STA (23:48)
[2018-02-22] MEDS ORDERED: ONDANSETRON 4 MG/2 ML VIAL IV STA (23:48)
[2018-02-22] MEDS ORDERED: MORPHINE 4 MG/1 ML VIAL IV STA (23:48)
[2018-02-23 00:32] LABS: Basophils % 0.6 % (0.0-0.8); Eosinophils # 0.2 10*3/uL (0.0-0.87); Eosinophils % 3.3 % (0.00-10.9); Hematocrit 35.1 VOL% (35.7-47.0); Hemoglobin 10.8 GM/DL (12.0-16.0); Immature Granulocytes % 0.3 %; Immature Granulocytes Absolute 0.02 #; Lymphocytes # 3.2 10*3/uL (1.4-4.0); Lymphocytes % 44.2 % (21.3-54.2); Mean Corpuscular HGB Conc 30.8 GM/DL (32-36); Mean Corpuscular Hemoglobin 27 PG (27-34); Mean Corpuscular Volume 86.9 FL (87-102); Mean Platelet Volume 10.3 FL (9.6-12.0); Monocytes # 0.7 10*3/uL (0.11-0.8); Monocytes % 9.2 % (1.7-12.7); Neutrophils # 3.1 10*3/uL (1.4-7.4); Neutrophils % 42.4 % (38.7-73.9); Platelet Count 224 T/CUMM (130-400); Red Blood Count 4.04 MC/CUMM (3.8-5.5); Red Cell Distribution Width 14.5 % (9.3-17.3); White Blood Count 7.2 T/CUMM (4-12)
[2018-02-23] MEDS ORDERED: POTASSIUM CHLORIDE 20 MEQ TABLET PO PRN (00:38)
[2018-02-23] MEDS ORDERED: MAGNESIUM SULF RIDER 2 GM in PREMIX 1 EACH IV PRN (00:38)
[2018-02-23] MEDS ORDERED: MAGNESIUM SULF RIDER 4 GM in PREMIX 1 EACH IV PRN (00:38)
[2018-02-23] MEDS ORDERED: ONDANSETRON 4 MG/2 ML VIAL IV PRN (00:38)
[2018-02-23] MEDS ORDERED: MORPHINE 4 MG/1 ML VIAL IV PRN (00:38)
[2018-02-23] MEDS ORDERED: GLUCAGON 1 MG VIAL IM PRN (00:38)
[2018-02-23] MEDS ORDERED: DEXTROSE 50% 25 GM/50 ML VIAL IV PRN (00:38)
[2018-02-23] MEDS ORDERED: SODIUM CHLORIDE 0.9% 1,000 ML IV SCH (00:38)
[2018-02-23 00:49] LABS: INR 0.9; PT Patient Result 10.2 SECS
[2018-02-23 00:53] LABS: Alanine Aminotransferase 13 U/L (13-56); Albumin 3.1 G/DL (3.4-5.0); Alkaline Phosphatase 89 U/L (45-117); Aspartate Amino Transferase 16 U/L (0-37); Bilirubin,Total < 0.39 MG/DL (0.2-1.0); Blood Urea Nitrogen 20 MG/DL (7-18); Calcium 8.7 MG/DL (8.5-10.1); Glucose 133 MG/DL (74-106); Osmolality,Calculated 287.1 MOS/KG (273-304); Potassium 4.2 MMOL/L (3.5-5.1); Sodium 142 MMOL/L (136-145); Total Protein 6.9 G/DL (6.4-8.3)
[2018-02-23] MEDS ORDERED: diphenhydrAMINE CAP 25 MG CAPSULE PO PRN (02:57)
[2018-02-23 03:31] LABS: Alanine Aminotransferase 13 U/L (13-56); Alkaline Phosphatase 85 U/L (45-117); Aspartate Amino Transferase 13 U/L (0-37); Bilirubin,Total < 0.39 MG/DL (0.2-1.0); Blood Urea Nitrogen 21 MG/DL (7-18); Calcium 8.5 MG/DL (8.5-10.1); Cholesterol 144 MG/DL (50-200); Glucose 108 MG/DL (74-106); HDL Cholesterol 54 MG/DL (40-60); Osmolality,Calculated 282.4 MOS/KG (273-304); Potassium 4.3 MMOL/L (3.5-5.1); Risk Ratio 2.67; Sodium 140 MMOL/L (136-145); Total Protein 6.8 G/DL (6.4-8.3); Triglycerides 50 MG/DL (2-150)
[2018-02-23 03:37] LABS: Basophils # 0.1 10*3/uL (0.0-0.2); Basophils % 0.7 % (0.0-0.8); Eosinophils # 0.3 10*3/uL (0.0-0.87); Eosinophils % 3.9 % (0.00-10.9); Hematocrit 37.1 VOL% (35.7-47.0); Hemoglobin 11.1 GM/DL (12.0-16.0); Immature Granulocytes % 0.4 %; Immature Granulocytes Absolute 0.03 #; Lymphocytes % 47.9 % (21.3-54.2); Mean Corpuscular HGB Conc 29.9 GM/DL (32-36); Mean Corpuscular Hemoglobin 26 PG (27-34); Mean Corpuscular Volume 86.9 FL (87-102); Mean Platelet Volume 11.9 FL (9.6-12.0); Monocytes # 0.8 10*3/uL (0.11-0.8); Monocytes % 9.8 % (1.7-12.7); Neutrophils # 3.1 10*3/uL (1.4-7.4); Neutrophils % 37.3 % (38.7-73.9); Platelet Count 210 T/CUMM (130-400); Red Blood Count 4.27 MC/CUMM (3.8-5.5); Red Cell Distribution Width 14.7 % (9.3-17.3); White Blood Count 8.3 T/CUMM (4-12)
[2018-02-23] MEDS: INSULIN REGULAR 100 UNIT/ML SUBCUT SCH ×4 (06:09→23:59)
[2018-02-23] MEDS: NITROGLYCERIN 2% OINT 1 INCH/GM PACK TOP SCH ×2 (06:10→12:08)
[2018-02-23 06:52] LABS: Band Neutrophils 2 % (0-10); Eosinophils 5 % (0-10); Hypochromasia 2+; Lymphocytes 47 % (20-55); Metamyelocytes 2 %; Platelet Estimate Normal; Segmented Neutrophils 36 % (50-85); Total Cells Counted 100
[2018-02-23 06:53] LABS: Anisocytosis 1+; Atypical Lymphocytes Few; Macrocytosis 1+
[2018-02-23] MEDS ORDERED: FUROSEMIDE 20 MG/2 ML VIAL IV SCH (08:00)
[2018-02-23] MEDS: PANTOPRAZOLE 40 MG TABLET PO SCH (08:35)
[2018-02-23] MEDS ORDERED: ENOXAPARIN 80 MG/0.8 ML SYRINGE SUBCUT SCH (09:00)
[2018-02-23] MEDS ORDERED: ASPIRIN EC 325 MG TABLET PO SCH (09:00)
[2018-02-23] MEDS ORDERED: tiZANidine 4 MG TABLET PO PRN (09:54)
[2018-02-23] MEDS ORDERED: LISINOPRIL 20 MG TABLET PO SCH (10:00)
[2018-02-23] MEDS ORDERED: PREGABALIN 100 MG CAPSULE PO SCH (10:00)
[2018-02-23] MEDS: CITALOPRAM 20 MG TABLET PO SCH (10:05)
[2018-02-23] MEDS: CETIRIZINE 10 MG TABLET PO SCH (10:05)
[2018-02-23] MEDS ORDERED: METOPROLOL TARTRATE 25 MG TABLET PO SCH (10:30)
[2018-02-23] MEDS: ACETAMINOPHEN 500 MG TABLET PO PRN (11:04)
[2018-02-23] MEDS ORDERED: ATROPINE 1 MG/10 ML SYRINGE IV ONE (15:55)
[2018-02-23] MEDS ORDERED: SODIUM CHLORIDE 0.9% 500 ML IV ONE (15:58)
[2018-02-23] MEDS ORDERED: DOPamine 800 MG/250 ML PREMIX IV PRN (16:03)
[2018-02-23] MEDS ORDERED: NALOXONE 0.4 MG/ML VIAL IV ONE (16:04)
[2018-02-23] MEDS ORDERED: ATROPINE 1 MG/10 ML SYRINGE IV PRN (16:08)
[2018-02-23] MEDS ORDERED: GLUCAGON 1 MG VIAL IV ONE (16:14)
[2018-02-23 16:23] LABS: Basophils # 0.1 10*3/uL (0.0-0.2); Basophils % 0.8 % (0.0-0.8); Eosinophils # 0.3 10*3/uL (0.0-0.87); Eosinophils % 4.6 % (0.00-10.9); Hematocrit 36.2 VOL% (35.7-47.0); Hemoglobin 10.9 GM/DL (12.0-16.0); Immature Granulocytes % 0.4 %; Immature Granulocytes Absolute 0.03 #; Lymphocytes # 3.3 10*3/uL (1.4-4.0); Lymphocytes % 46.3 % (21.3-54.2); Mean Corpuscular HGB Conc 30.1 GM/DL (32-36); Mean Corpuscular Hemoglobin 26 PG (27-34); Mean Corpuscular Volume 87.7 FL (87-102); Mean Platelet Volume 10.7 FL (9.6-12.0); Monocytes # 0.8 10*3/uL (0.11-0.8); Monocytes % 10.4 % (1.7-12.7); Neutrophils # 2.7 10*3/uL (1.4-7.4); Neutrophils % 37.5 % (38.7-73.9); Platelet Count 240 T/CUMM (130-400); Red Blood Count 4.13 MC/CUMM (3.8-5.5); Red Cell Distribution Width 14.6 % (9.3-17.3); White Blood Count 7.2 T/CUMM (4-12)
[2018-02-23 16:25] LABS: ABG Base Excess -0.6 MMOL/L (-2.5-2.5); ABG HCO3 23.8 MMOL/L (20-26); ABG Oxygen Saturation 94.5 % (95-100); ABG PCO2 62.6 MM HG (35-48); ABG PH 7.259 (7.35-7.45); ABG PO2 78.6 MM HG (80-95); ABG TCO2 25.4 MMOL/L (23-27); Allen Test Positive
[2018-02-23 16:53] LABS: Alanine Aminotransferase 13 U/L (13-56); Alkaline Phosphatase 80 U/L (45-117); Aspartate Amino Transferase 12 U/L (0-37); Bilirubin,Total < 0.39 MG/DL (0.2-1.0); Blood Urea Nitrogen 24 MG/DL (7-18); Calcium 8.7 MG/DL (8.5-10.1); Glucose 100 MG/DL (74-106); Osmolality,Calculated 282.4 MOS/KG (273-304); Potassium 4.8 MMOL/L (3.5-5.1); Sodium 140 MMOL/L (136-145); Total Protein 6.7 G/DL (6.4-8.3)
[2018-02-23 17:01] LABS: Calcium 8.6 MG/DL (8.5-10.1); Free T4 (Free Thyroxine) 0.87 NG/DL (0.76-1.46); Osmolality,Calculated 285.3 MOS/KG (273-304); Potassium 5.1 MMOL/L (3.5-5.1); Thyroid Stimulating Hormone 1.56 uIU/ml (0.358-3.74)
[2018-02-23 17:30] LABS: ABG Base Excess -0.8 MMOL/L (-2.5-2.5); ABG HCO3 23.7 MMOL/L (20-26); ABG Oxygen Saturation 96.3 % (95-100); ABG PCO2 58.1 MM HG (35-48); ABG PH 7.276 (7.35-7.45); ABG PO2 88.2 MM HG (80-95); ABG TCO2 24.7 MMOL/L (23-27); Allen Test Positive
[2018-02-23 17:31] LABS: Apearance,Urine CLEAR (Clear); Bilirubin,Urine Negative (Negative); Blood, Urine Negative (Negative); Glucose,Urine (UA) Negative (Negative); Hyaline Casts,Urine 3 /LPF (0-3); Ketones,Urine Negative (Negative); Nitrite,Urine Negative (Negative); Protein,Urine Negative; RBC,Urine 1 /HPF (0-4); Squamous Epithelial Cell,Urine Occasional /HPF (0-10); Urine Color Straw (Yellow); Urine Urobilinogen < 2.0 EU/DL (0.2-1.0); WBC,Urine 2 /HPF (0-6)
[2018-02-23 17:33] LABS: Eosinophils 5 % (0-10); Lymphocytes 44 % (20-55); Microcytosis Slight; Segmented Neutrophils 40 % (50-85)
[2018-02-23 17:34] LABS: Macrocytosis Slight; Polychromasia Few
[2018-02-23 17:35] LABS: Platelet Estimate Normal; Total Cells Counted 100
[2018-02-23] MEDS: ATORVASTATIN 80 MG TABLET PO SCH (21:59)
[2018-02-24 04:21] LABS: ABG Base Excess 1.6 MMOL/L (-2.5-2.5); ABG HCO3 25.9 MMOL/L (20-26); ABG PCO2 54.8 MM HG (35-48); ABG PH 7.327 (7.35-7.45); ABG TCO2 25.9 MMOL/L (23-27); Allen Test Positive
[2018-02-24 05:17] LABS: Basophils # 0.1 10*3/uL (0.0-0.2); Basophils % 0.6 % (0.0-0.8); Eosinophils # 0.2 10*3/uL (0.0-0.87); Eosinophils % 2.6 % (0.00-10.9); Hematocrit 36.1 VOL% (35.7-47.0); Hemoglobin 11.1 GM/DL (12.0-16.0); Immature Granulocytes % 0.4 %; Immature Granulocytes Absolute 0.03 #; Lymphocytes # 3.1 10*3/uL (1.4-4.0); Lymphocytes % 38.6 % (21.3-54.2); Mean Corpuscular HGB Conc 30.7 GM/DL (32-36); Mean Corpuscular Hemoglobin 27 PG (27-34); Mean Corpuscular Volume 87.2 FL (87-102); Mean Platelet Volume 10.8 FL (9.6-12.0); Monocytes # 0.7 10*3/uL (0.11-0.8); Monocytes % 8.8 % (1.7-12.7); Neutrophils # 3.9 10*3/uL (1.4-7.4); Platelet Count 239 T/CUMM (130-400); Red Blood Count 4.14 MC/CUMM (3.8-5.5); Red Cell Distribution Width 14.4 % (9.3-17.3)
[2018-02-24 05:32] LABS: Calcium 9.2 MG/DL (8.5-10.1); Osmolality,Calculated 282.3 MOS/KG (273-304); Potassium 4.3 MMOL/L (3.5-5.1)
[2018-02-24] MEDS: INSULIN REGULAR 100 UNIT/ML SUBCUT SCH ×3 (06:15→18:05)
[2018-02-24] MEDS: ACETAMINOPHEN 500 MG TABLET PO PRN (06:16)
[2018-02-24] MEDS: ENOXAPARIN 40 MG/0.4 ML SYRINGE SUBCUT SCH (09:16)
[2018-02-24] MEDS: CITALOPRAM 20 MG TABLET PO SCH (09:22)
[2018-02-24] MEDS: ASPIRIN EC 81 MG TABLET PO SCH (09:22)
[2018-02-24] MEDS: LISINOPRIL 2.5 MG TABLET PO SCH (09:22)
[2018-02-24] MEDS: PANTOPRAZOLE 40 MG TABLET PO SCH (09:23)
[2018-02-24] MEDS: CETIRIZINE 10 MG TABLET PO SCH (09:23)
[2018-02-24] MEDS ORDERED: IBUPROFEN 200 MG TABLET PO PRN (09:25)
[2018-02-24 09:45] LABS: Troponin I < 0.015 NG/ML (0.00-0.045)
[2018-02-24] MEDS: METOPROLOL SUCCINATE XL 25 MG TABLET PO SCH (10:16)
[2018-02-24] MEDS: ACETAMINOPHEN 325 MG TABLET PO PRN (11:28)
[2018-02-24] MEDS: IBUPROFEN 400 MG TABLET PO PRN (20:48)
[2018-02-24] MEDS: ATORVASTATIN 80 MG TABLET PO SCH (20:48)
[2018-02-25] MEDS: INSULIN REGULAR 100 UNIT/ML SUBCUT SCH ×5 (00:11→21:06)
[2018-02-25] MEDS: ACETAMINOPHEN 325 MG TABLET PO PRN ×2 (00:19→16:23)
[2018-02-25 04:04] LABS: Basophils % 0.6 % (0.0-0.8); Eosinophils # 0.2 10*3/uL (0.0-0.87); Eosinophils % 3.7 % (0.00-10.9); Hematocrit 36.2 VOL% (35.7-47.0); Immature Granulocytes % 0.2 %; Immature Granulocytes Absolute 0.01 #; Lymphocytes # 3.6 10*3/uL (1.4-4.0); Lymphocytes % 57.5 % (21.3-54.2); Mean Corpuscular HGB Conc 30.4 GM/DL (32-36); Mean Corpuscular Hemoglobin 26 PG (27-34); Mean Corpuscular Volume 85.8 FL (87-102); Mean Platelet Volume 11.5 FL (9.6-12.0); Monocytes # 0.6 10*3/uL (0.11-0.8); Monocytes % 9.8 % (1.7-12.7); Neutrophils # 1.8 10*3/uL (1.4-7.4); Neutrophils % 28.2 % (38.7-73.9); Platelet Count 233 T/CUMM (130-400); Red Blood Count 4.22 MC/CUMM (3.8-5.5); Red Cell Distribution Width 14.2 % (9.3-17.3); White Blood Count 6.2 T/CUMM (4-12)
[2018-02-25 04:23] LABS: Calcium 8.9 MG/DL (8.5-10.1); Osmolality,Calculated 281.3 MOS/KG (273-304)
[2018-02-25 05:34] LABS: Eosinophils 4 % (0-10); Lymphocytes 56 % (20-55); Segmented Neutrophils 33 % (50-85); Total Cells Counted 100
[2018-02-25 05:35] LABS: Atypical Lymphocytes Few; Hypochromasia Slight; Platelet Estimate Normal; Reactive Lymphocytes 2+
[2018-02-25] MEDS: IBUPROFEN 400 MG TABLET PO PRN ×2 (08:31→12:11)
[2018-02-25] MEDS: CITALOPRAM 20 MG TABLET PO SCH (08:32)
[2018-02-25] MEDS: ASPIRIN EC 81 MG TABLET PO SCH (08:32)
[2018-02-25] MEDS: PANTOPRAZOLE 40 MG TABLET PO SCH (08:32)
[2018-02-25] MEDS: ENOXAPARIN 40 MG/0.4 ML SYRINGE SUBCUT SCH (08:32)
[2018-02-25] MEDS: METOPROLOL SUCCINATE XL 25 MG TABLET PO SCH (08:32)
[2018-02-25] MEDS: CETIRIZINE 10 MG TABLET PO SCH (08:32)
[2018-02-25] MEDS: LISINOPRIL 2.5 MG TABLET PO SCH (08:32)
[2018-02-25] MEDS ORDERED: LISINOPRIL 2.5 MG TABLET PO SCH (08:38)
[2018-02-25] MEDS: LISINOPRIL 20 MG TABLET PO SCH (10:39)
[2018-02-25] MEDS: amLODIPine 5 MG TABLET PO SCH (12:30)
[2018-02-25] MEDS ORDERED: hydrALAZINE 25 MG TABLET PO PRN (13:48)
[2018-02-25] MEDS: ATORVASTATIN 80 MG TABLET PO SCH (21:06)
[2018-02-26 03:04] LABS: Basophils % 0.7 % (0.0-0.8); Eosinophils # 0.2 10*3/uL (0.0-0.87); Eosinophils % 3.1 % (0.00-10.9); Hematocrit 38.3 VOL% (35.7-47.0); Immature Granulocytes % 0.3 %; Immature Granulocytes Absolute 0.02 #; Lymphocytes # 2.8 10*3/uL (1.4-4.0); Lymphocytes % 47.2 % (21.3-54.2); Mean Corpuscular HGB Conc 31.3 GM/DL (32-36); Mean Corpuscular Hemoglobin 26 PG (27-34); Mean Corpuscular Volume 83.3 FL (87-102); Mean Platelet Volume 11.5 FL (9.6-12.0); Monocytes # 0.6 10*3/uL (0.11-0.8); Monocytes % 9.4 % (1.7-12.7); Neutrophils # 2.3 10*3/uL (1.4-7.4); Neutrophils % 39.3 % (38.7-73.9); Platelet Count 162 T/CUMM (130-400); Red Cell Distribution Width 14.1 % (9.3-17.3); White Blood Count 5.9 T/CUMM (4-12)
[2018-02-26 03:18] LABS: Calcium 9.4 MG/DL (8.5-10.1); Osmolality,Calculated 275.7 MOS/KG (273-304); Potassium 3.8 MMOL/L (3.5-5.1)
[2018-02-26] MEDS: ACETAMINOPHEN 325 MG TABLET PO PRN (05:32)
[2018-02-26] MEDS: INSULIN REGULAR 100 UNIT/ML SUBCUT SCH ×2 (08:56→12:00)
[2018-02-26] MEDS: IBUPROFEN 400 MG TABLET PO PRN (08:59)
[2018-02-26] MEDS ORDERED: FLUTICASONE 50 MCG NASAL SPRAY 16 GM BOTTLE BOTH NARES SCH (09:00)
[2018-02-26] MEDS: ASPIRIN EC 81 MG TABLET PO SCH (09:01)
[2018-02-26] MEDS: LISINOPRIL 20 MG TABLET PO SCH (09:01)
[2018-02-26] MEDS: amLODIPine 5 MG TABLET PO SCH (09:01)
[2018-02-26] MEDS: CITALOPRAM 20 MG TABLET PO SCH (09:01)
[2018-02-26] MEDS: METOPROLOL SUCCINATE XL 25 MG TABLET PO SCH (09:01)
[2018-02-26] MEDS: ENOXAPARIN 40 MG/0.4 ML SYRINGE SUBCUT SCH (09:01)
[2018-02-26] MEDS: PANTOPRAZOLE 40 MG TABLET PO SCH (09:01)
[2018-02-26] MEDS: CETIRIZINE 10 MG TABLET PO SCH (09:01)
[2018-02-26 12:09] VITALS: BP 125/75
== END 2018-02-26 13:18 | disposition home health service (06) | DRG 313 ==
LOC: EDUNIT# → EDBD → N.ED 23:23 → N.EDINP 02-23 00:26 → N.CC 02-23 01:03 → N.TELEN 02-23 13:53 → N.CC 02-23 16:22 → N.TELEN 02-25 13:36
PROVIDERS: ADMIT Internal Medicine Cardiovascular Disease; ATTEND Internal Medicine Cardiovascular Disease